=== PATIENT | male | born 2000 | race Caucasian/White ===

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

== ENCOUNTER 2022-02-10 03:05 | Emergency (ER) | payer OTHER ==
[~2022-02-10] VITALS: Ht 172.7 cm; Wt 47.6 kg
[2022-02-10 03:15] VITALS: BP 120/78
--- NOTE | 2022-02-10 03:15 | NUR ---
TO BED AMBULATORY
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
[2022-02-10] MEDS ORDERED: NAPR-54 PO (04:08)
--- NOTE | 2022-02-10 04:10 | NUR ---
DR MARISCAL AT BEDSIDE DISCUSSING PT RESULTS
[2022-02-10 04:11] VITALS: BP 124/82
--- NOTE | 2022-02-10 04:13 | NUR ---
Patient discharged with v/s stable. Written and verbal after care instructions given and explained. Patient alert, oriented and verbalized understanding of instructions. Ambulatory with steady gait. All questions addressed prior to discharge. ID band removed. Patient advised to follow up with PMD. Rx of NAPROSYN given. Patient educated on indication of medication including possible reaction and side effects. Opportunity to ask questions provided and answered. VSS, A/OX4, UNLABORED BREATHING, AMBULATORY, AND CALM DEMEANOR. DISCHARGED BY DR MARISCAL.
== END 2022-02-10 04:10 | disposition home or self-care (01) ==
LOC: MED 03:05
DX: S22.20XA Unspecified fracture of sternum, initial encounter for closed fracture (principal); Z79.899 Other long term (current) drug therapy; V89.2XXA Person injured in unspecified motor-vehicle accident, traffic, initial encounter; Y93.89 Activity, other specified; Y92.89 Other specified places as the place of occurrence of the external cause; Y99.8 Other external cause status
CPT/HCPCS: 71120; 93005; 99283

== ENCOUNTER 2022-02-12 07:28 | Emergency (ER) | payer OTHER ==
[~2022-02-12] VITALS: Ht 172.7 cm; Wt 50.0 kg
[~2022-02-12 07:28] MED LIST: NAPR-54 PO
[2022-02-12 07:34] VITALS: BP 140/94
--- NOTE | 2022-02-12 07:45 | NUR ---
PT IN CHAIR A
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
[2022-02-12 08:40] VITALS: BP 140/94
--- NOTE | 2022-02-12 09:04 | NUR ---
Patient discharged with v/s stable. Written and verbal after care instructions given and explained. Patient verbalized understanding. Ambulatory with steady gait. All questions addressed prior to discharge. Advised to follow up with PMD.
== END 2022-02-12 09:04 | disposition home or self-care (01) ==
LOC: MED 07:28
DX: Z00.00 Encounter for general adult medical examination without abnormal findings (principal); Z79.899 Other long term (current) drug therapy
CPT/HCPCS: 99281